=== PATIENT | female | born 1965 | race Caucasian/White ===

== ENCOUNTER → 2021-08-01 08:43 | Outpatient (CLI) | payer BC, SELFPAY ==
--- NOTE | ~2021-08-01 | US_ITS ---
EXAMINATION: US right upper quadrant EXAM DATE: 08/01/2021 09:04 INDICATION: E78.2 - Mixed hyperlipidemia . TECHNIQUE: Multiple grayscale and Doppler images of the abdomen right upper quadrant were obtained (b y a technologist who performed the scan) and subsequently reviewed. There is no prior study for ej [place]. FINDINGS: The pancreatic head and body are normal in appearance. The pancreatic tail is not visualized. There is echogenic liver parenchyma, hepatic steatosis. There are no focal liver lesions identified. Th ere is no evidence of intrahepatic biliary duct dilation. Portal venous flow was seen in the hepatop edal, normal direction and has normal Doppler waveform. No right-sided hydronephrosis. Common bile duct measures 3 mm, which is normal. The gallbladder wall is normal in thickness, with ex pected amount of distention. No sonographic evidence of pericholecystic fluid. There is no cholelit hiases. Technologist performing exam reports patient did not demonstrate sonographic Rodriguez's sign. Please note that this sign is less reliable in patients who have received pain medication. IMPRESSION: 1. Hepatic steatosis. Reviewed, dictated and finalized at location B. IMPRESSION: 1. Hepatic steatosis.
--- NOTE | ~2021-08-01 | XR_ITS ---
EXAMINATION: XR chest 2V EXAM DATE: 08/01/2021 09:09 INDICATION: R05 - Cough TECHNIQUE: Frontal and lateral projections of the chest obtained and reviewed. There is no prior savage dy for comparison. FINDINGS: Spine stimulator lead projecting at about the T9 level. The lungs are clear. There are no pleural effusions. The cardiomediastinal silhouette is within normal limits. There is no pneumotho rax suspected. The bones and soft tissues are unremarkable. IMPRESSION: No acute cardiopulmonary findings. Reviewed, dictated and finalized at location B.
== END ==
PROVIDERS: PCP Family Medicine; Visit Provider Physician Assistant
DX: E78.2 Mixed hyperlipidemia (principal); R05.9 Cough, unspecified; K76.0 Fatty (change of) liver, not elsewhere classified
CPT/HCPCS: 71046; 76705

== ENCOUNTER 2021-10-11 11:04 | Outpatient (CLI) | payer BC, SELFPAY ==
--- NOTE | ~2021-10-11 | XR_ITS ---
XR hand LT min 3V DATE: 10/11/2021 11:34 INDICATION: Left hand pain. Cyst at base of thumb. TECHNIQUE: 3 views COMPARISON: None FINDINGS: There is minimal osteoarthritic spurring at the first carpal metacarpal joint. There is ost eoarthritic narrowing at some interphalangeal joints. No fracture or dislocation, periosteal reaction or bone destruction is detected. IMPRESSION: Mild osteoarthritis Reviewed, dictated and finalized at location A. [employer] IMPRESSION: Mild osteoarthritis
== END 2021-10-11 11:05 | disposition home or self-care (01) ==
PROVIDERS: PCP Family Medicine; Visit Provider Nurse Practitioner Gerontology
DX: M18.12 Unilateral primary osteoarthritis of first carpometacarpal joint, left hand (principal); M19.042 Primary osteoarthritis, left hand
CPT/HCPCS: 73130

== ENCOUNTER → 2023-01-18 09:31 | Outpatient (CLI) | payer BC, SELFPAY ==
--- NOTE | ~2023-01-18 | US_ITS ---
US abdomen complete EXAMINATION: US Abdomen Complete INDICATION: Palpable mass to the left of the umbilicus. PROCEDURE: Realtime High Resolution abdomen ultrasound. COMPARISON: No prior studies for comparison FINDINGS: Gallbladder within normal limits. No gallstones, pericholecystic fluid, gallbladder wall t hickening or biliary dilatation. Common bile duct measures 4 mm. Liver echotexture is increased, consistent with fatty infiltration.. Pancreas within normal limits. Pancreatic tail is obscured by bowel gas. Spleen is unremarkeable. Renal echotexture is within norm al limits bilaterally without hydronephrosis, contour deforming mass or renal stone. Right kidney charo sures 11.3 cm. Left kidney measures 11.4 cm. Visualized aspects of the aorta and IVC are within normal limits. Portal vein is patent. No sonograph ic Rodirguez's sign indicated by the technologist. To the left of the umbilicus there is normal heterogeneous soft tissue. No discrete mass identified. IMPRESSION: 1: Hepatic steatosis. 2: No discrete mass identified in the area of palpable concern adjacent to the umbilicus. Reviewed, dictated and finalized at location L.
== END ==
PROVIDERS: PCP Family Medicine; Visit Provider Physician Assistant
DX: R19.05 Periumbilic swelling, mass or lump (principal); K76.0 Fatty (change of) liver, not elsewhere classified
CPT/HCPCS: 76700

== ENCOUNTER 2024-04-21 08:49 | Outpatient (CLI) | payer BC, SELFPAY ==
--- NOTE | ~2024-04-21 | MMUS_ITS ---
EXAMINATION: MM diagnostic naga BI w [place], US breast BI complete HISTORY: Breast pain TECHNIQUE: Additional 3-D tomosynthesis images of the breasts were performed and synthetic 2-D images were generated. CAD analysis was submitted and interpreted. High resolution bilateral complete breas t ultrasound was performed. COMPARISON: 10/29/2012 BREAST PARENCHYMAL COMPOSITION: Not dense: There are scattered areas of fibroglandular density. FINDINGS: MAMMOGRAPHIC FINDINGS: There are no suspicious masses, calcifications or architectural distortion in either breast to sugges t malignancy. ULTRASOUND: Complete bilateral US of all 4 quadrants of the breasts and retroareolar region was reviewed. Right breast: At 10:00, 8 cm from the nipple, there is a 1.5 cm intramammary lymph node corresponding to finding on mammography. No suspicious masses to suggest malignancy. Left breast: There are small cysts of the left breast at 12-1:00, measuring 3 mm. No suspicious bryson s to suggest malignancy. IMPRESSION: 1. No evidence for malignancy in either breast. Benign findings. 2. Routine yearly screening mammogram and regular clinical breast examination are recommended. BI-RADS Category 2: Benign finding(s). Reviewed, dictated and finalized at location B. IMPRESSION: 1. No evidence for malignancy in either breast. Benign findings. 2. Routine yearly screening mammogram and regular clinical breast examination a re recommended. BI-RADS Category 2: Benign finding(s).
== END 2024-04-21 08:50 ==
LOC: MICIMG 08:50
PROVIDERS: PCP Family Medicine; Visit Provider Physician Assistant
DX: N64.4 Mastodynia (principal)
CPT/HCPCS: 76641; 77062; 77066; G0279

== ENCOUNTER 2024-11-05 10:17 | Outpatient (CLI) | payer BC, SELFPAY ==
--- NOTE | ~2024-11-05 | US_ITS ---
EXAMINATION: US soft tissue head and neck DATE: 11/05/2024 10:35 INDICATION: Thyroid cancer. TECHNIQUE: Multiple ultrasound images of the head and neck were obtained. COMPARISON: None. FINDINGS: The thyroid is absent. There are no pathologically enlarged lymph nodes. IMPRESSION: 1. Absent thyroid. 2. No lymphadenopathy. Reviewed, dictated and finalized at location A. HER
== END 2024-11-05 10:18 | disposition home or self-care (01) ==
PROVIDERS: PCP Family Medicine; Visit Provider Internal Medicine
DX: C73 Malignant neoplasm of thyroid gland (principal); E89.0 Postprocedural hypothyroidism
CPT/HCPCS: 76536

== ENCOUNTER 2025-03-09 07:23 | Outpatient (CLI) | payer BC, SELFPAY ==
--- OUTSIDE RECORDS SUMMARY | 2025-03-09 07:27 | XMS_ITS | Data Portability ---
Author Organization [place] [facility] [employer], Main Office Address [address] [place] [address] Assessment No assessment recorded. Plan of Treatment Reminders Order Date Submit Date Provider Last Modified By Organization Details Last Modified Time Details Appointments None recorded. Lab cortisol, am, serum 2022 023 [facility], [address] , [place], [address], 3 15:57:28 dexamethaso ne, serum 2022 023 [facility], [address] , [place], [address], 3 15:57:25 thyroglobul in + thyroglobul in Ab, serum 2022 023 [facility], [address] , [place], [address], 3 15:57:30 TSH + free T4, serum 2022 023 [facility], [address] , [place], [address], 3 01:40:01 T3, free, serum or plasma 2022 023 [facility], [address] [facility], [facility], [place], [address], 3 15:57:29 vitamin B12 + folate, serum or blood 2022 023 [facility], [address] , [place], [address], 3 01:40:01 lipid panel, serum 2022 023 [facility], [address], [place], [address], 3 01:40:01 HbA1c (hemoglobin A1c), blood 2022 [facility]23 [facility] [address], [place], [address], 3 15:57:31 CMP, serum or plasma 2022 023 [facility], [address], [place], [address], 3 01:40:01 microalbumi n/creatinin e, mass ratio, urine 2022 023 [facility], [address], [place], [address], 3 15:57:23 C-peptide, serum 2022 023 [facility], [address], [place], [address], 3 15:57:27 jay-65 Ab, serum 2022 023 [facility], [address], [place], [address], 3 15:57:24 islet cell Ab (ia-2), serum 2022 023 [facility], [address], [place], [address], 3 15:57:26 renin activity, plasma (pra) 2022 023 [facility] [address], [place], [address], 3 09:24:54 aldosterone /renin activity, ratio, plasma 2022 023 [facility], [address], [place], [address], 15:57:25 aldosterone , serum 2022 023 ARCHIE [facility], [address], [place], [address], 09:24:50 Referral None recorded. Procedures None recorded. Surgeries None recorded. Imaging US, thyroid 2022 023 [facility], [address], [address] [address], [place], [address], 09:40:49 Medication Orders bempedoic acid 180 mg tablet 2022 023 [facility] #[id number], [address], [place], [address], 14:48:14 dexamethaso ne 1 mg tablet 2022 023 [email or web address] [facility]/Pharmacy #[id number], [address], [place], [address], 14:31:01 Janumet XR 50 mg-500 mg tablet,exte nded release 2022 023 [facility] #[id number], [address] [facility] [place], [address], 14:07:10 Patient TargetsNo targets recorded. Patient InstructionsNo instructions recorded. Reason for Referral None Reported. Results Created Date Observation Date Name Description Value Unit Range Abnormal Flag Note LastModifiedBy Organization Detail LastModifiedTime 03/21/20 23 04/04/2023 LIPID PANEL , STAND AKANKSHA cholesterol, total 221 mg/dL <200 high Not Available [facility] [address] [place], [address], 04/04/2023 15:57:20 03/21/20 23 04/04/2023 LIPID PANEL , STAND AKANKSHA HDL cholesterol 47 mg/dL > or = 50 low Not Available [facility] [address] [place] [address], [address], 04/04/2023 15:57:20 03/21/20 23 04/04/2023 LIPID PANEL , STAND AKANKSHA triglyceride s 361 mg/dL <150 high If a non-f astin g speci men was colle cted, consi sherron repea t trigl yceri de testi ng on a fasti ng speci men if clini john indic ated. Daljit king et al. J. of Clin. Lipid ol. 2015; 9:129 -169. Not Available [address], [address], 04/04/2023 15:57:20 03/21/20 23 04/04/2023 LIPID PANEL , STAND AKANKSHA LDL-choleste rol 122 mg/dL _(jeannette c) high Refer ence range : <100 Hermila able range <100 mg/dL for prima ry preve ntion ; <70 mg/dL for patie nts with CHD or diabe tic patie nts with > or = 2 CHD risk facto rs. LDL-C is now calcu lated using the Kelly n-Hop kins calcu latjovon n, which is a valid ated novel metho d provi ding kathy r accur acy than the Fried dickson equat ion in the estim ation of LDL-C . Kelly mckeon SS et al. MANUEL. 2013; 310(1 9): 2061- 2068 (http ://ed ucati on.Qu estDi Rundowns. com/f aq/FA Q164) Not Available [facility] [address] [place], [address], 04/04/2023 15:57:20 03/21/20 23 04/04/2023 LIPID PANEL , STAND AKANKSHA chol/HDLC ratio 4.7 (calc ) <5.0 normal Not Available [address], [address], 04/04/2023 15:57:20 03/21/20 23 04/04/2023 LIPID PANEL , STAND AKANKSHA non HDL cholesterol 174 mg/dL _(jeannette c) <130 high For patie nts with diabe jam plus 1 major ASCVD risk facto r, treat ing to a non-H DL-C goal of <100 mg/dL (LDL- C of <70 mg/dL ) is consi dered a thera pemacarioi c optio n. Not Available [facility] [address] [place], [place] [address], [address], 04/04/2023 15:57:20 03/21/20 23 04/04/2023 COMPR EHENS YOSI METAB OLIC PANEL glucose 406 mg/dL 65-99 high Verif ied by repea t al sis. Fasti ng refer ence inter aranza For someo ne witho ut known diabe jam, a gluco se value >125 mg/dL indic ates that they may have diabe jam and this shoul d be confi rmed with a follo w-up test. Not Available [facility] [address], [address], 04/04/2023 15:57:22 03/21/20 23 04/04/2023 COMPR EHENS YOSI METAB OLIC PANEL urea nitrogen (BUN) 15 mg/dL 7-25 normal Not Available [facility] [address] [place], [address], 04/04/2023 15:57:22 03/21/20 23 04/04/2023 COMPR EHENS YOSI METAB OLIC PANEL creatinine 0.85 mg/dL 0.50-1 .05 normal Not Available [facility] [address], [address], 04/04/2023 15:57:22 03/21/20 23 04/04/2023 COMPR EHENS YOSI METAB OLIC PANEL eGFR 78 mL/mi n/1.7 3m2 > or = 60 normal The eGFR is based on the CKD-E PI 2020 equat ion. To calcu late the new eGFR from a previ ous Creat inine or Cysta sindy C resul t, go to https ://jermaine chapin/catrina leal s/ kdoqi /gfr% 5Fcal culat or Not Available [address] [address] [place], [address], 04/04/2023 15:57:22 03/21/20 23 04/04/2023 COMPR EHENS YOSI METAB OLIC PANEL BUN/creatini ne ratio NOT APPLIC ABLE (calc ) 6-22 Not Available [address], [address], 04/04/2023 15:57:22 03/21/20 23 04/04/2023 COMPR EHENS YOSI METAB OLIC PANEL sodium 134 mmol/ L 135-14 6 low Not Available [address], [address], 04/04/2023 15:57:22 03/21/20 23 04/04/2023 COMPR EHENS YOSI METAB OLIC PANEL potassium 4.6 mmol/ L 3.5-5. 3 normal Not Available [address], [address], 04/04/2023 15:57:22 03/21/20 23 04/04/2023 COMPR EHENS YOSI METAB OLIC PANEL chloride 99 mmol/ L 98-110 normal Not Available [address], [address], 04/04/2023 15:57:22 03/21/20 23 04/04/2023 COMPR EHENS YOSI METAB OLIC PANEL carbon dioxide 25 mmol/ L 20-32 normal Not Available [address] [address] [place], [address], 04/04/2023 15:57:22 03/21/20 23 04/04/2023 COMPR EHENS YOSI METAB OLIC PANEL calcium 9.7 mg/dL 8.6-10 .4 normal Not Available [address], [address], 04/04/2023 15:57:22 03/21/20 23 04/04/2023 COMPR EHENS YOSI METAB OLIC PANEL protein, total 7.7 g/dL 6.1-8. 1 normal Not Available [address], [address], 04/04/2023 15:57:22 03/21/20 23 04/04/2023 COMPR EHENS YOSI METAB OLIC PANEL albumin 4.7 g/dL 3.6-5. 1 normal Not Available [address], [address], 04/04/2023 15:57:22 03/21/20 23 04/04/2023 COMPR EHENS YOSI METAB OLIC PANEL globulin 3.0 g/dL_ (calc ) 1.9-3. 7 normal Not Available [address], [address], 04/04/2023 15:57:22 03/21/20 23 04/04/2023 COMPR EHENS YOSI METAB OLIC PANEL albumin/glob ulin ratio 1.6 (calc ) 1.0-2. 5 normal Not Available [address], [address], 04/04/2023 15:57:22 03/21/20 23 04/04/2023 COMPR EHENS YOSI METAB OLIC PANEL bilirubin, total 0.6 mg/dL 0.2-1. 2 normal Not Available [address], [address], 04/04/2023 15:57:22 03/21/20 23 04/04/2023 COMPR EHENS YOSI METAB OLIC PANEL alkaline phosphatase 134 U/L 37-153 normal Not Available [address] [address] [place], [address], 04/04/2023 15:57:22 03/21/20 23 04/04/2023 COMPR EHENS YOSI METAB OLIC PANEL AST 39 U/L 10-35 high Not Available [address] [address] [place], [address], 04/04/2023 15:57:22 03/21/20 23 04/04/2023 COMPR EHENS YOSI METAB OLIC PANEL ALT 29 U/L 6-29 normal Not Available [address] [address] [place], [address], 04/04/2023 15:57:22 03/21/20 23 04/04/2023 ALBUM IN, RANDO M URINE W/CRE ATINI NE creatinine, random urine 58 mg/dL 20-275 normal Not Available [address] [address] [place], [address], 04/04/2023 15:57:23 03/21/20 23 04/04/2023 ALBUM IN, RANDO M URINE W/CRE ATINI NE albumin, urine 8.2 mg/dL see note: normal Refer ence Range : Refer ence Range Not estab lishe d Not Available [address] [address] [place], [address], 04/04/2023 15:57:23 03/21/20 23 04/04/2023 ALBUM IN, RANDO M URINE W/CRE ATINI NE albumin/crea tinine ratio, random urine 141 mcg/m g_cre at <30 high The ADA defin es abnor malit ies in album in excre tion as follo ws: Album inuri a Categ ory Resul t (mcg/ mg creat inine ) Phyllis l to Mildl y incre ased <30 Moder ately incre ased 30-29 9 Sever jj incre ased > OR = 300 The ADA recom mends that at least two of three speci mens colle cted withi n a 3-6 month perio d be abnor mal befor e consi majo g a patie nt to be withi n a diagn ostic categ ory. Not Available [facility] [address] [place], [address], 04/04/2023 15:57:23 03/21/20 23 04/04/2023 GLUTA MATTEO ACID DECAR BOXYL ASE 65 AB glutamic acid decarboxylas e 65 Ab <5 IU/mL <5 This test was perfo rmed using the GAD65 SADE metho d, which is stand ardiz ed again st the Inter natio nal refer ence prepa ratio n 97/55 0. Not Available [facility] [address] [place], [address], 04/04/2023 15:57:24 03/21/20 23 04/04/2023 ALDOS RAE E/JENNIFER SMA RENIN ACTIV ITY RATIO ,LC/M S/MS aldosterone, lc/MS/MS 5 NG/dL Adult Refer ence Range s for Aldos rae e: Uprig ht 8:00- 10:00 am < or = 28 ng/dL Uprig ht 4:00- 6:00 pm < or = 21 ng/dL Supin e 8:00- 10:00 am 3-16 ng/dL This test was devel oped and its al tical perfo rmanc e riki cteri stics have been deter mined by [facility] Jovon Delongi aaron Lu . It has not been clear ed or appro sophy by FDA. This assay has been valid ated pursu ant to the CLIA regul ation s and is used for clini jeannette purpo ses. Not Available [facility] [address] [place], [address], 04/04/2023 15:57:25 03/21/2004/04/2023 ALDOS RAE E/JENNIFER SMA RENIN ACTIV ITY RATIO ,LC/M S/MS plasma renin activity, lc/MS/MS 1.33 NG/mL /h 0.25-5 .82 Not Available [facility] [address] [address] [place], [address], 04/04/2023 15:57:25 03/21/2004/04/2023 ALDOS RAE E/JENNIFER SMA RENIN ACTIV ITY RATIO ,LC/M S/MS silvana/pra ratio 3.8 ratio 0.9-28 .9 Not Available [facility] [address] [address] [place], [address], 04/04/2023 15:57:25 03/21/20 23 04/04/2023 DEXAM ETHAS ONE dexamethason e 618 NG/dL Refer ence Range s for Dexam ethas one: Basel ine: Less than 20 ng/dL 1 mg dexam ethas one overn ight: 180-5 50 ng/dL (8:00 -10:0 0 AM) This test was devel oped and its al tical perfo rmanc e riki cteri stics have been deter mined by [facility] [employer] Montrell Love tranmaciel . It has not been clear ed or appro sophy by FDA. This assay has been valid ated pursu ant to the CLIA regul ation s and is used for clini jeannette purpo ses. Not Available [address] [address] [place], [address], 04/04/2023 15:57:25 03/21/2004/04/2023 IA-2 ANTIB SANDRA ia-2 antibody <5.4 U/mL <5.4 This test was perfo rmed using the IA-2 Antib sandra SADE metho d which is stand ardiz ed again st the WHO Refer ence Reage nt 97/55 0. The refer ence range repor kerri was estab lishe d speci fical ly for this test metho d. Not Available [facility] [address] [address] [place], [address], 04/04/2023 15:57:26 03/21/2004/04/2023 C-PEP TIDE C-peptide 2.61 NG/mL 0.80-3 .85 normal Not Available [facility] [address], [address], 04/04/2023 15:57:27 03/21/2004/04/2023 CORTI JENNIFER, A.M. cortisol, A.M. 1.3 mcg/d L low Refer ence Range 8 a.m. (7-9 a.m.) Speci men: 4.0-2 2.0 Not Available [address], [address], 04/04/2023 15:57:27 03/21/2004/04/2023 VITAM IN B12/F OLATE , SERUM PANEL vitamin B12 307 pg/mL 200-11 00 normal Pleas e Note: Altho ugh the refer ence range for vitam in B12 is 200-1 100 pg/mL , it has been repor kerri that betwe en 5 and 10% of patie nts with value s betwe en 200 and 400 pg/mL may exper ience neuro psych iatri c and hemat ologi c abnor malit ies due to occul t B12 defic iency ; less than 1% of patie nts with value s above 400 pg/mL will have sympt oms. Not Available [address], [address], 04/04/2023 15:57:28 03/21/2004/04/2023 VITAM IN B12/F OLATE , SERUM PANEL folate, serum 16.1 NG/mL normal Refer ence Range Low: <3.4 Borde rline : 3.4-5 .4 Phyllis l: >5.4 Not Available [facility] [employer] [facility] [address], [address], 04/04/2023 15:57:28 03/21/2004/04/2023 T3, FREE T3, free 2.5 pg/mL 2.3-4. 2 normal Not Available [employer] [address] [place], [address], 04/04/2023 15:57:29 03/21/20 23 04/04/2023 THYRO GLOBU STAN PANEL thyroglobuli n antibodies <1 IU/mL < or = 1 Not Available [facility] [address] [address] [place], [address], 04/04/2023 15:57:30 03/21/20 23 04/04/2023 THYRO GLOBU STAN PANEL thyroglobuli n 0.1 NG/mL low Refer ence Range : Intac t Thyro id 2.8-4 0.9 Athyr otic <0.1 Note: Abnor mal chnael ing is based on the refer ence inter aranza for patie nts with intac t thyro id. This test was perfo rmed using the VTX Technology[employer] er chemi lumin escen t metho d. Value s obtai soni from diffe rent assay metho ds canno t be used inter oconnell eably . Thyro globu stan level s, regar dless of value , shoul d not be inter prete d as absol ak chin evide nce of the prese nce or absen ce of disea se. For addit ional infor tigre rg refer to http: //michael lopezque stdia gnost ics.c om/fa q/FAQ (This link is being provi ded for infor oskar michael/ emery barboza purpo ses only. ) Not Available [address] [address] [place], [address], 04/04/2023 15:57:30 03/21/2004/04/2023 TSH+F REE T4 TSH 0.06 mIU/L 0.40-4 .50 low Not Available [facility] [address] [address] [place], [address], 04/04/2023 15:57:30 03/21/20 23 04/04/2023 TSH+F REE T4 T4, free 1.3 NG/dL 0.8-1. 8 normal Not Available [facility] [address] [place], [address], 04/04/2023 15:57:30 03/21/2004/04/2023 HEMOG LOBIN A1C hemoglobin A1C 12.9 %_of_ total _HGB <5.7 high For someo ne witho ut known diabe jam, a hemog lobin A1c value of 6.5% or great er indic ates that they may have diabe jam and this shoul d be confi rmed with a follo w-up test. For someo ne with known diabe jam, a value <7% indic ates that their diabe jam is well contr olled and a value great er than or equal to 7% indic ates subop timal contr ol. A1c targe ts shoul d be indiv idual ized based on durat ion of diabe jam, age, comor bid condi tions , and other consi derat ions. Curre ntly, no conse nsus exist s laurence cunningham use of hemog lobin A1c for diagn osis of diabe jam for child sammy. Not Available [facility] [employer] [facility] [address] [address], [place], [address], 04/04/2023 15:57:31 Result Notes None recorded. Problems Name Problem SNOMED Code Status Onset Date Resolution Date Notes Provider Name and Address Organization Details Recorded Time Uncontrolled type 2 diabetes mellitus 542321309 Active 2022 Tameka George MD [address], [place], [address], [employer] 3 09:21:39 Weight gain 1975219 Active 2022 Tameka George MD [address], [place], [address], [employer] 3 09:22:04 Essential hypertension 78793548 Active 2022 Tameka George MD [address], [place], [address], [employer] 3 09:22:11 Postoperative hypothyroidism 12525354 Active 2022 Tameka George MD [address] [facility], [facility] [address], [place], [address], [facility] [email or web address] [facility] 3 09:22:29 Dyslipidemia 660948201 Active 2022 Tameka George MD [address], [place], [address], [facility] [email or web address] [facility] 3 09:22:49 Problem Notes None recorded. Procedures Surgical History Date Name Laterality Status Provider Name and Address Organization Details Recorded Time thyroidectomy completed NIKOLAS AcostaA [facility] [email or web address] [facility] 03/20/2023 09:10:38 Imaging Results None recorded. Procedure Notes None recorded. Medical Equipment None Reported. Allergies Allergen ID Allergen Name Allergen Category Reaction Reaction Severity Criticality Documentation Date Start Date Code Code System Note Provider Name and Address Organization Details Recorded Time 80375 Prozac medicatio n Not available Not available Not available 03/20/2023 47880 RxNorm Ella Thurman RMA null, [facility] [email or web address] [facility] 3 09:05:38 09144 codeine medicatio n Not available Not available Not available 03/20/2023 2670 RxNorm Ella Thurman RMA null, [facility] [email or web address] [facility] 3 09:05:42 78112 penicilli n G Not available Not available Not available Not available 03/20/2023 7980 Rx[facility] [email or web address] [facility] 3 09:05:49 Medications Name Sig Start Date Stop Date Status Note LastModified by Organization Details LastModified Time levothyroxi ne 137 mcg tablet TAKE 1 TABLET BY MOUTH EVERY DAY 03/20 completed Not Available Not Available Not Available metoprolol succinate ER 100 mg tablet,exte nded release 24 hr TAKE 1 TABLET BY MOUTH EVERY DAY active Not Available Not Available No t Available omeprazole 40 mg capsule,del ayed release 03/20 completed Not Available Not Available Not Available glimepiride 2 mg tablet Take 2 tablets twice a day by oral route before meals for 90 days. active Not Available Not Available No t Available metoclopram bogdan 5 mg tablet 03/20 completed Not Available Not Available Not Available [employer] Ultra Test strips CHECK BLOOD SUGARS 4 TIMES A DAY BEFORE MEALS AND AT BEDTIME active Not Available Not Available No t Available dexamethaso ne 1 mg tablet TAKE 1 TABLET BY MOUTH AT 10 PM THE NIGHT BEFORE 8 AM CORTISOL 04/30 completed Not Available Not Available Not Available benzonatate 100 mg capsule TAKE 2 CAPSULES BY MOUTH 3 TIMES A DAY NEEDED FOR COUGH 03/20 completed Not Available Not Available Not Available pantoprazol e 40 mg tablet,randy yed release TAKE 1 TABLET BY MOUTH EVERY DAY IN THE MORNING active Not Available Not Available No t Available levothyroxi ne 125 mcg tablet TAKE 1 TABLET BY MOUTH EVERY DAY active Not Available Not Available No t Available losartan 25 mg tablet TAKE 1 TABLET BY MOUTH EVERY DAY active Not Available Not Available No t Available venlafaxine 50 mg tablet TAKE 1 TABLET BY MOUTH EVERY DAY 03/20 completed Not Available Not Available Not Available omeprazole 20 mg capsule,del ayed release 03/20 completed Not Available Not Available Not Available lisinopril 5 mg tablet 03/20 completed Not Available Not Available Not Available ergocalcife rol (vitamin D2) 1,250 mcg (50,000 unit) capsule TAKE 1 CAPSULE BY MOUTH ONCE WEEKLY active Not Available Not Available No t Available insulin lispro (U-100) 100 unit/mL subcutaneou s pen PLEASE SEE ATTACHED FOR DETAILED DIRECTION S 03/20 completed Not Available Not Available Not Available Novolog FlexPen U-100 Insulin aspart 100 unit/mL (3 mL) subcutaneou s PLEASE SEE ATTACHED FOR DETAILED DIRECTION S active Not Available Not Available No t Available rosuvastati n 5 mg tablet 03/20 completed Not Available Not Available Not Available rosuvastati n 10 mg tablet 03/20 completed Not Available Not Available Not Available rosuvastati n 20 mg tablet TAKE 1 TABLET BY MOUTH EVERY DAY active Not Available Not Available No t Available Levemir FlexPen 100 unit/mL (3 mL) solution subcutaneou s insulin pen INJECT 35 UNITS SUBCUTANE OUSLY TWICE A DAY active Not Available Not Available No t Available budesonide- formoterol HFA 80 mcg-4.5 mcg/actuati on aerosol inhaler INHALE 2 PUFFS BY MOUTH EVERY 12 HOURS. active Not Available Not Available No t Available Lantus Solostar U-100 Insulin 100 unit/mL (3 mL) subcutaneou s pen INJECT 30 UNITS SUBCUTANE OUSLY TWICE DAILY 03/20 completed Not Available Not Available Not Available Janumet XR 100 mg-1,000 mg tablet,exte nded release 03/20 completed Not Available Not Available Not Available Janumet XR 50 mg-500 mg tablet,exte nded release TAKE 1 TABLET BY MOUTH EVERY DAY IN THE MORNING active Not Available Not Available No t Available Jardiance 10 mg tablet 03/20 completed Not Available Not Available Not Available Trulicity 1.5 mg/0.5 mL subcutaneou s pen injector INJECT 0.5 ML (1.5 MG) SUBCUTANE OUSLY ONCE WEEKLY. ROTATE SITES BETWEEN ABDOMEN, THIGH, UPPER ARM 03/20 completed Not Available Not Available Not Available TechLITE Pen Needle 32 gauge x 5/32 USE TO INJECT INSULIN TWICE A DAY DIRECTED active Not Available Not Available No t Available OneTouch Ultra Blue Test Strip active Not Available Not Available N ot Available Nexletol 180 mg tablet Take by oral route for 90 days. active Not Available Not Available No t Available FreeStyle Rina 3 Sensor device active Not Available Not Available Not Available Vitals Date Recorded Body weight Body mass index (BMI) Body height Body temperature Respiratory rate Heart rate Systolic blood pressure Diastolic blood pressure Provider Name and Address Organization Details Last Updated DateTime 3 73930.2 5 g 26.7 kg/m2 162.56 cm 97.5 [degF] 18 /min 67 /min 147 mm[Hg] 85 mm[Hg] Ella Thurman [facility] [employer] [facility] [employer] 3 09:05:18 Date Recorded Body height Body mass index (BMI) Body weight Body temperature Heart rate Systolic blood pressure Diastolic blood pressure Provider Name and Address Organization Details Last Updated DateTime 3 162.56 cm 26.5 kg/m2 73394.6 6 g 97.7 [degF] 75 /min 126 mm[Hg] 86 mm[Hg] Barbie Guillen [facility] [employer] [facility] [employer] 14:30:06 Social History Question Answer Notes LastModified by Organizat ion Details LastModified Time Tobacco Smoking Status Former Smoker SHYANN Acosta, [place] [facility] [employer] 03/20/2023 09:10:20 What Is Your Level Of Caffeine Consumption? Occasional Information not available 03/20/2023 When Did You Quit Smoking? 14+yearssincela isha Information not available 03/20/2023 Sex: Unknown Functional Status None recorded. Mental Status None recorded. Family History Relationship Description Onset Age of this Age Resolved Age Notes LastModified by Organization Details LastModified Time Father Diabetes mellitus [email or web address] Not available 2022 09:09:05 Father Heart disease [email or web address] Not available 2022 09:09:18 Mother Heart disease [email or web address] Not available 2022 09:09:18 Brother Leukemia [email or web address] Not availabl e 03/20/2023 09:09:58 Medical History Condition Response CANCER: SPECIFY Y Gynecological HistoryNo gynecological history recorded. Obstetrics History GPAL:G 0 P 0 0 0 0 Past Encounters Encounter ID Performer Location Encounter Start Date Encounter Closed Date Diagnosis/Indication Diagnosis SNOMED-CT Code Diagnosis ICD10 Code Diagnosis Note [id number] Tameka George MD [facility] [address] [place] [address] 03/20/2023 08:50:11 03/20/2023 09:40:49 Uncontrolled type 2 diabetes mellitus [id number] E11.65 Likely type 2 diabetic - I am most concerned patient has hypercorti solism with her insulin requiremen ts, hypertensi on and body habitus- would recommend low dose dexa suppressio n testing to screen for hypercorti solic state. Restart janumet 50-500 mg daily as she cannot tolerate metformin only, Continue levemir 35 twice daily with instructio ns to increase by 3 units every 3 days until fasting glucose 90-130 mg/dL. Continue novolog 1:5 carb ratio plus correction 2U:05>150 mg/dL on premeal sugars. Weight gain [id number] R63. 5 Will send for low dose dexa suppressio n testing to screen for hypercorti solic state. Essential hypertension [id number] I10 Patient is on multiple medication s for blood pressure control . Would recommend she undergo a simple fasting blood test to screen for primary hyperaldos teronism and if found to be positive we could plan to transition to an aldosteron e sean and wean off multiple medication s. Patient was provided lab order to obtain fasting before 9 am. Postoperat yosi hypothyroidism [id number] E89.0 Send for TG panel to screen for thyroid tissue recurrence - patient dx in her mid 30s and in remission per records- send for thyroid panel as well as goal TSH up to 0.5 uIU/ML to reduce pituitary stimulatio n. Dyslipidemia [id number] E 78.5 continue statin therapy and send for lipid panel to screen for need to modify therapy. Spent up to 45 minutes preparing to see the patient (eg, review of tests), obtaining and/or reviewing separately obtained history, performing a medically appropriat e examinatio n and evaluation , counseling and educating the patient, ordering medication s, tests, along with documentin g clinical informatio n in the electronic health record, independen tly interpreti ng results and communicat ing results to the patient. RTC in 3 months. Patient was provided a handwritte n lab order which contains our fax number. If she chooses to go outside of the [facility] system to obtain labwork she was advised to provide our fax number and my informatio n to the lab she will be obtaining labwork from in order to have her labs properly forwarded over for me to review so there is no loss of follow up due to use of outside network. She was also advised to contact our clinic informing us that she has completed her labwork so we are aware we will need to reach out to the appropriat e laboratory to request her results be forwarded to us so I might have the ability to review and make further medical decision making in her case. She voiced understand ing. [id number] Tameka George MD [facility] [address] [place] [address] 04/30/2023 14:07:12 04/30/2023 14:55:21 Uncontrolled type 2 diabetes mellitus [id number] E11.65 a1c of 12.9%-vibha ent advised to increase her levemir to 42 units in morning and 48 units at dinner and patient advised to increase by 3 units every 3 days until fasting glucose 90-130 mg/dL.Cont inue on novolog 1:5 carb ratio plus correction 2U:05>150 mg/dL on premeal sugars. Continue on janumet for insulin sensitizat ion. Continue on dexcom glucose sensor to assist with adjustment . DST was borderline elevated at 1.3 ug/dL- should repeat in 6 months to see if patient has element of hypercorti solism and may need further adrenal workup imaging to see if cortisol sean would be ideal for patient. She voiced understand ing. Dyslipidemia [id number] E 78.5 continue statin therapy and add bempedoic acid as LDL of 122 mg/dL. Postoperat yosi hypothyroidism [id number] E89.0 TG neg and FT4 in range - continue on LT4 125 mcg daily. Spent up to 25 minutes preparing to see the patient (eg, review of tests), obtaining and/or reviewing separately obtained history, performing a medically appropriat e examinatio n and evaluation , counseling and educating the patient, ordering medication s, tests, along with documentin g clinical informatio n in the electronic health record, independen tly interpreti ng results and communicat ing results to the patient. Patient can be followed by PCP - she/he is aware of my resignatio n and last day of July 20. If needed his/her PCP can refer patient to another endocrinol ogist in the area. All questions /concerns answered and refills necessary at visit today. Health Concerns Section Related Observation LastModified by Organization Detai ls LastModified Time None Recorded Concern Status LastModified by Organization Details LastModified Time None Recorded Advance Directives Directive None Recorded Payers Encounter Date Sequence Insurance Name Policy Number Policy Valadez Covered Member ID Valadez Member ID Guarantor Name 03/20/2023 1 [employer] [address] Benavidez [id number] Karen Benavidez 04/30/2023 1 [place] [address] Benav[address]z [id number] Karen Benavidez Notes Date Note Type Note Provider Name and Address Organization Details Recorded Time 03/20/2023 text/html 58 yo female com es in as referral by courtesy of Dr. Lewis for evaluation of poorly controlled OBED IB likely(A1C of 11.4%), mixed dyslipidemia and postoperative hypothyroidism. she was originally diagnosed 10 years ago. she was always the same weight She tends to eat when she gets stressed out. She does good for a while and then relapses. She has also struggled with hypertension since her 20s. She has hx of thyroid cancer / papillary likely at age of 33, received ablation x 2 due to recurrence-came back in 2000. She is currently taking LT4 125 mcg daily. Saw oncology last in 2012. She is currently taking novolog 15 units before meals along with levemir 35 units twice daily. she has had a few falls and no fractures. She was using the [employer] rina 2 sensor but costs have gone up too high. labs from December 28:a1c 11.4%glucose 424 mg/dLTSH of 0.03 uIU/mlFT4 of 1.9 ng/dLCr normalTG high over 500 mg/dL Tameka George MD [address] [facility], [facility] [address], [place], [address], [facility] [employer] 03/20/2023 14:11:21 04/30/2023 text/html 58 yo female com es in for follow up in management of uncontrolled type 2 DM (A1C of 12.9%), mixed dyslipidemia and postoperative hypothyroidism. At her initial visit in March we had patient restart janumet 50-500 mg daily as she cannot tolerate metformin only; we had her continue levemir 35 twice daily with instructions to increase by 3 units every 3 days until fasting glucose 90-130 mg/dL.We had her continue novolog 1:5 carb ratio plus correction 2U:05>150 mg/dL on premeal sugars. DST of 1.3 ug/dL so borderline with dexa level of 618 (repeat in 6 months) we continued rosuvastatin we continued levothyroxine 125 mcg daily. She has no hx of stress fractures or broken bones. She has no improvement since her changes. Feels her sugars do not drop. She is over 300 mg/dL even with taking her rapid insulin. She is taking levemir 37 units twice daily along with humalog 15 units before meals along with janumet. labs from 03/30:silvana 5 ng/mLPAR 3.8 ng/ml221/361/47/122 glucose 406 mg/dLCr normalALT [id number] 12.9%TG panel negTSH of 0.06 uIU/mLFT4 of 1.3 ng/dLFT3 of 2.5 pg/mLB12/folate 307/16.1cpeptide 2.61 ng/mL Tameka George MD [address] [facility] [address], [place], [address], [place] [facility] [employer] 04/30/2023 14:54:36 OBGyn Episode No OBEpisode recorded.
--- NOTE | 2025-03-09 07:40 | EST_ITS ---
Patient Info Name: Karen Benavidez Age: 60 years : 1965 Gender: Female Ht: 64 in Wt: 132 lbs BSA: 1.65 m2 HR: 73 bpm BP: 150 / 93 mmHg Exam Date: 03/09/2025 7:40 AM Patient Status: O Admit Date: 03/09/2025 Exam Type: CA stress test treadmill A treadmill exercise stress test was performed. Staff Attending Provider: Marco A Mcclellan DO Exercise Technologist: Piedad Ram Exercise Physician: Marco A Mcclellan DO Summary 1. 1. Negative Ministerio exercise stress test for ischemic ST changes by ECG criteria. 2. 2. Reduced functional capacity, achieving 4.7 METs of workload. 3. 3. Appropriate HR response to exercise. 4. 4. Appropriate HR recovery at 1 minute post exercise. 5. 5. No imaging with stress testing. 6. 6. Patient informed of the above results. Protocol: Ministerio Stress ECG Details Stage: REST Duration (min): 0 min : 48 sec Speed (mph): 0.0 Grade (%): 0 HR (bpm): 71 SBP (mmHg): 150 DBP (mmHg): 93 METS: --- Stage: REST Duration (min): 3 min : 18 sec Speed (mph): 0.0 Grade (%): 0 HR (bpm): 83 SBP (mmHg): 150 DBP (mmHg): 93 METS: --- Stage: STAGE 1 Duration (min): 1 min : 0 sec Speed (mph): 1.7 Grade (%): 10 HR (bpm): 117 SBP (mmHg): 150 DBP (mmHg): 93 METS: --- Stage: STAGE 1 Duration (min): 2 min : 0 sec Speed (mph): 1.7 Grade (%): 10 HR (bpm): 147 SBP (mmHg): 150 DBP (mmHg): 93 METS: --- Stage: STAGE 1 Duration (min): 3 min : 0 sec Speed (mph): 1.7 Grade (%): 10 HR (bpm): 147 SBP (mmHg): 185 DBP (mmHg): 91 METS: --- Stage: RECOVERY Duration (min): 0 min : 59 sec Speed (mph): 0.0 Grade (%): 0 HR (bpm): 100 SBP (mmHg): 185 DBP (mmHg): 91 METS: --- Stage: RECOVERY Duration (min): 1 min : 59 sec Speed (mph): 0.0 Grade (%): 0 HR (bpm): 90 SBP (mmHg): 185 DBP (mmHg): 91 METS: --- Stage: RECOVERY Duration (min): 2 min : 59 sec Speed (mph): 0.0 Grade (%): 0 HR (bpm): 74 SBP (mmHg): 192 DBP (mmHg): 92 METS: --- Stage: RECOVERY Duration (min): 3 min : 59 sec Speed (mph): 0.0 Grade (%): 0 HR (bpm): 71 SBP (mmHg): 192 DBP (mmHg): 92 METS: --- Stage: RECOVERY Duration (min): 4 min : 32 sec Speed (mph): 0.0 Grade (%): 0 HR (bpm): 75 SBP (mmHg): 178 DBP (mmHg): 97 METS: --- Rest HR: 83 bpm Peak HR: 148 bpm Rest Sys BP: 150 mmHg Peak Sys BP: 192 mmHg Max Pred HR: 158 bpm % Max Pred HR: 94 % Target HR: 134 bpm Max RPP: 28,416 bpm*mmHg Watson Score: -3 Termination Reason: Reached target heart rate or workload Cardiac Symptoms: Shortness of breath Max ST Seg Deviation: -1.10 mm Total Time: 3 min : 0 sec Rest Montalvo BP: 93 mmHg Peak Montalvo BP: 92 mmHg Angina Score: None Total METS: 4.7 Resting ECG Sinus rhythm. Stress ECG No ST changes. Arrhythmias None. Report Signatures
--- NOTE | 2025-03-09 07:40 | ECHO_ITS ---
Patient Info Name: Karen Benavidez Age: 60 years : 1965 Gender: Female Ht: 64 in Wt: 132 lbs BSA: 1.65 m2 HR: 68 bpm BP: 150 / 97 mmHg Technical Quality: Good Exam Date: 03/09/2025 8:14 AM Patient Status: O Admit Date: 03/09/2025 Exam Type: CA echo doppler color flow Complete two-dimensional, color flow and Doppler transthoracic echocardiogram is performed. Cell Attendant: Sara Marrufo Attending Provider: Marco A Mcclellan DO Summary 1. Complete two-dimensional, color flow and Doppler transthoracic echocardiogram is performed. 2. Left ventricular chamber dimension is normal. 3. Left ventricular systolic function is normal, estimated at 60-65. 4. The left ventricular diastolic function is grade I diastolic dysfunction. 5. E/e' 8 is minimally elevated. 6. Left atrial chamber dimension is mildly enlarged. 7. No pulmonary hypertension, estimated pulmonary arterial systolic pressure is 20 mmHg. Left Ventricle E/e' 8 is minimally elevated. Left ventricular chamber dimension is normal. Left ventricular systolic function is normal, estimated at 60-65. The left ventricular diastolic function is grade I diastolic dysfunction. Right Ventricle Right ventricular chamber dimension is normal. Right ventricular systolic function is normal. Left Atria Left atrial chamber dimension is mildly enlarged. Right Atria Right atrial chamber dimension is normal. Aortic Valve The aortic valve is trileaflet. There is no aortic valve stenosis. There is no aortic valve regurgitation. Pulmonic Valve There is no pulmonic regurgitation. Mitral Valve There is no mitral valve stenosis. There is no mitral valve regurgitation. Tricuspid Valve There is no tricuspid valve regurgitation. No pulmonary hypertension, estimated pulmonary arterial systolic pressure is 20 mmHg. Pericardium/Pleural There is no pericardial effusion. Inferior Vena Cava Normal inferior vena cava with >50% collapse upon inspiration consistent with normal right atrial pressure, 5 mmHg. Aorta The aortic root size at the sinus of Valsalva is normal. Left Ventricular Outflow Tract Name Value Normal LVOT 2D LVOT Diameter 1.8 cm LVOT Doppler LVOT Peak Velocity 95 cm/s LVOT Peak Gradient 4 mmHg LVOT Mean Gradient 2 mmHg LVOT VTI 23 cm LVOT VTI/AV VTI Ratio 0.9 LVOT Stroke Volume 55 ml LVOT CO 9.8 l/min LVOT CI 5.9 l/min/m2 Pulmonic Valve Name Value Normal PV Doppler PV Peak Velocity 85 cm/s PV Peak Gradient 3 mmHg Mitral Valve Name Value Normal MV Diastolic Function MV E Peak Velocity 77 cm/s MV A Peak Velocity 86 cm/s MV E/A 0.9 MV Decel Time (PW) 224 ms MV Annular TDI MV E/e' (Septal) 9.5 MV E/e' (Lateral) 7.1 MV E/e' (Average) 8.3 Tricuspid Valve Name Value Normal TV Regurgitation Doppler TR Peak Velocity 193 cm/s TR Peak Gradient 15 mmHg Estimated PAP/RSVP RA Pressure 5 mmHg <=5 PA Systolic Pressure 20 mmHg <36 RV Systolic Pressure 20 mmHg <36 TV Annular TDI TV Lateral Cynthia s' Velocity 10.7 cm/s >=9.5 Aorta Name Value Normal Ascending Aorta Ao Root Diameter (MM) 2.8 cm Ao Root Diam Index (MM) 1.7 cm/m2 Aortic Valve Name Value Normal AV Doppler AV Peak Velocity 115 cm/s AV Peak Gradient 5 mmHg AV Mean Gradient 3 mmHg AV VTI 25 cm AV Area (Cont Eq VTI) 2.2 cm2 >=3.0 AV Area (Cont Eq Walter) 2.0 cm2 AV DI (Walter) 0.83 AV Regurgitation 2D LVOT Area 2.5 cm2 Ventricles Name Value Normal LV Dimensions 2D/MM IVS Diastolic Thickness (2D) 0.8 cm 0.6-1.0 LVID Diastole (2D) 3.7 cm 3.8-5.2 LVIW Diastolic Thickness (2D) 0.9 cm 0.6-0.9 LVID Systole (2D) 2.2 cm 2.2-3.5 LVOT Diameter 1.8 cm LV Mass (2D Cubed) 86.85 g 67.00-162.00 LV Mass Index (2D Cubed) 53 g/m2 43-95 Relative Wall Thickness (2D) 0.46 <=0.42 LV Fractional Shortening/Ejection Fraction 2D/MM LV Fractional Shortening (2D) 41 % 27-45 LV EF (2D Teichholz) 73 % LV Diastolic Volume (4C MOD) 80 ml LV EF (4C MOD) 68 % LV Diastolic Volume (2C MOD) 72 ml LV EF (2C MOD) 70 % LV Diastolic Volume (BP MOD) 76 ml 46-106 LV Diastolic Volume Index (BP MOD) 46 ml/m2 29-61 LV Systolic Volume (BP MOD) 24 ml 14-42 LV Systolic Volume Index (BP MOD) 14 ml/m2 8-24 LV EF (BP MOD) 69 % 54-74 LV Diastolic Length (4C) 7.7 cm LV Systolic Length (4C) 6.3 cm LV Stroke Volume (4C MOD) 54 ml RV Dimensions 2D/MM RVID Diastole (2D) 3.0 cm 2.1-3.5 Atria Name Value Normal LA Dimensions LA Dimension (MM) 3.5 cm 2.7-3.8 LA Volume (4C A-L) 38 ml LA Volume (BP A-L) 38 ml RA Dimensions RA Systolic Major [place] Length (4C) 4.1 cm 2.2-2.8 RA Area (4C) 10.1 cm2 <=18.0 Report Signatures
== END 2025-03-09 07:24 | disposition home or self-care (01) ==
PROVIDERS: PCP Family Medicine; Visit Provider Internal Medicine Cardiovascular Disease
DX: R07.9 Chest pain, unspecified (principal); R00.2 Palpitations
CPT/HCPCS: 93017; 93306